=== PATIENT | female | born 1945 | race Caucasian/White ===

== ENCOUNTER 2022-03-31 15:42 | Emergency (ER) | payer MEDICARE ==
[~2022-03-31] VITALS: Ht 160 cm; Wt 62.3 kg
[~2022-03-31 15:42] MED LIST: ASPI-1 PO; LISI1TAB53 PO; MELA5CAP PO; SUMA100T PO; TOBR5DRO2 EACHEYE; TRAZ-256 PO
--- NOTE | 2022-03-31 17:30 | NUR ---
Family frustrated about wait for md. 3 patients ahead of pt. BP stable, pt and family willing to wait a little bit longer.
[2022-03-31 18:42] VITALS: BP_DIAS 108
--- NOTE | 2022-03-31 18:43 | NUR ---
pt. laying supine in bed with no distress. family member at bedside.
[2022-03-31 19:45] VITALS: BP_SYST 178
== END 2022-03-31 19:47 | disposition home or self-care (01) ==
LOC: ER 15:42
DX: I10 Essential (primary) hypertension (principal); Z88.5 Allergy status to narcotic agent; Z88.6 Allergy status to analgesic agent
CPT/HCPCS: 93005; 99283

== ENCOUNTER 2022-10-23 21:43 | Emergency (ER) | payer MEDICARE ==
[~2022-10-23] VITALS: Ht 162.6 cm; Wt 62.7 kg
[~2022-10-23 21:43] MED LIST changes: +AMLO5TAB16 PO; -ASPI-1 PO; -MELA5CAP PO; -TOBR5DRO2 EACHEYE
[2022-10-23 22:04] VITALS: BP 152/87
--- NOTE | 2022-10-23 22:11 | NUR ---
Advised Dr. Joseph of pt's condition and that Dr. Velazquez needs to be advised
[2022-10-23] MEDS ORDERED: morphine 4 MG/ML inj SYRINge IV ONE (23:25)
[2022-10-24] MEDS ORDERED: HYDROmorphone 1 mg/ml syringe IM ONE (00:15)
== END 2022-10-24 01:53 | disposition home or self-care (01) ==
LOC: ER 21:44
DX: L76.32 Postprocedural hematoma of skin and subcutaneous tissue following other procedure (principal); G89.18 Other acute postprocedural pain; M25.511 Pain in right shoulder; R11.10 Vomiting, unspecified; I10 Essential (primary) hypertension; Z88.5 Allergy status to narcotic agent; Z79.899 Other long term (current) drug therapy
CPT/HCPCS: 73030; 96372; 99283; J1170; A6449

== ENCOUNTER 2023-11-30 11:50 | Emergency (ER) | payer MEDICARE | END 2023-11-30 14:08 | disposition left against medical advice (07) | LOC: ER 11:51 | DX: M54.9 Dorsalgia, unspecified (principal); Z53.21 Procedure and treatment not carried out due to patient leaving prior to being seen by health care provider | CPT/HCPCS: 80053; 83880 ==